=== PATIENT | female | born 1955 | race Two or more races ===

== ENCOUNTER 2021-06-26 05:55 | Day surgery (SDC) | payer OTHER ==
[~2021-06-26 05:55] MED LIST: CRESTOR20 MG PO; JENTADUETO XR1 EACH PO; MAXIM PO; NORVASC10 MG PO
[2021-06-26] MEDS ORDERED: PERCOCET 5-3251 EACH PO (10:07)
== END 2021-06-26 12:35 | disposition home or self-care (01) ==
LOC: CIR.AMB 05:55
PROVIDERS: ATTEND Surgery
DX: D35.1 Benign neoplasm of parathyroid gland (principal); Z20.822 Contact with and (suspected) exposure to COVID-19